=== PATIENT | male | born 1960 | race Caucasian/White ===

== ENCOUNTER 2018-05-08 12:48 | Emergency (ER) | payer BC ==
[~2018-05-08] VITALS: Ht 182.9 cm; Wt 83.9 kg
[2018-05-08] MEDS ORDERED: IV NORMAL SALINE 1,000ML 1,000 ML IV SCH (13:30)
[2018-05-08] MEDS ORDERED: ONDANSETRON PF 4 MG/2 ML VIAL. IV ONE (13:30)
[2018-05-08] MEDS ORDERED: KETOROLAC 30 MG/ML VIAL. IV ONE (13:30)
[2018-05-08 13:40] LABS: BASO % 0 % (0-3); EOS % 0 % (0-3); HEMATOCRIT 51.3 % (39.0-53.0); HEMOGLOBIN 17.5 g/dL (13.0-17.5); LYMPH # 0.8 x10^3/uL (1.0-4.8); LYMPH % 6 % (24-48); MEAN CORPUSCULAR HEMOGLOBIN 31 pg (25-35); MEAN CORPUSCULAR HGB CONC 34 g/dL (31-37); MEAN CORPUSCULAR VOLUME 91 fL (79-100); MONO # 0.7 x10^3/uL (0.0-1.1); MONO % 5 % (0-9); NEUT # 11.9 x10^3uL (1.8-7.7); NEUT % 89 % (31-73); PLATELET COUNT 213 x10^3/uL (140-400); RED BLOOD COUNT 5.63 x10^6/uL (4.30-5.70); RED CELL DISTRIBUTION WIDTH 13.3 % (11.5-14.5); WHITE BLOOD COUNT 13.4 x10^3/uL (4.0-11.0)
[2018-05-08 13:54] LABS: ALBUMIN 3.7 g/dL (3.4-5.0); CALCIUM 9.6 mg/dL (8.5-10.1); POTASSIUM 3.4 mmol/L (3.5-5.1); TOTAL BILIRUBIN 1.3 mg/dL (0.2-1.0); TOTAL PROTEIN 7.4 g/dL (6.4-8.2)
--- NOTE | 2018-05-08 14:08 | RAD ---
Examination: CT of the abdomen pelvis without contrast HISTORY: History of right lower quadrant pain radiating to the left COMPARISON: None available TECHNIQUE: Axial CT images that and pelvis are performed without contrast. Coronal and sagittal reformats are performed Exposure: One or more of the following individualized dose reduction techniques were utilized for this examination: 1. Automated exposure control 2. Adjustment of the mA and/or kV according to patient size 3. Use of iterative reconstruction technique FINDINGS: The bibasilar lungs are clear. No evidence of free air identified in the abdomen. There is diffuse decreased attenuation noted in the liver likely hepatic steatosis. The visualized liver, spleen, adrenals grossly appears unremarkable. The stomach is distended with fluid. The visualized pancreas grossly appears unremarkable. Multiple fluid distended/dilated small bowel loops identified in the abdomen throughout. The appendix is enlarged measuring up to 5.8 cm in length and measures 2 cm in thickness with severe inflammatory fat stranding identified about the appendix. Multiple appendicoliths identified within the appendix. Feces and gas noted in the colon. Punctate 1 mm intrarenal collecting system calculus identified in the right kidney. No evidence of hydronephrosis. Mild aortic atherosclerosis. Mild anterolisthesis of L4 on L5 with the bilateral L4 spondylolysis. IMPRESSION: 1. Findings consistent with severe acute appendicitis. Severe inflammatory fat stranding identified about the appendix. The appendix is enlarged and measures up to 2 cm in transverse dimension. 2. Multiple fluid distended and dilated small bowel loops probably ileus secondary to inflammation about the appendix. However small bowel obstruction is not completely excluded. 3. Hepatic steatosis. 4. 1 mm intrarenal collecting system calculus right kidney. in ER was informed at time of dictation. Electronically signed by: Asim Phillips MD (05/08/2018 2:04 PM) [place] [id number]
--- NOTE | 2018-05-08 14:20 | PHYS DOC ---
Past History Past Medical History: Hypertension Adult General Chief Complaint Chief Complaint: ABDOMINAL PAIN HPI HPI Patient is a 58 year old male who presents with complaining of abdominal pain. Patient complaining of gradual onset of lower abdominal pain that started 3 days ago as a constant and aching pain with episodes of sharp pain as stated with anorexia. Patient said the pain getting force with movement and denies urinary symptom, nausea and vomiting, fever and chills, diarrhea. Patient states he had a bowel movement 4 days ago and usually does not have constipation. Patient rated his pain 7/10 and states his pain getting worse today and complaining of subjective fever. Patient states he had history of kidney stone 1 with the same symptoms and thinks he has kidney stone again. Review of Systems Review of Systems Constitutional: Reports fever] Eyes: Denies change in visual acuity, redness, or eye pain [] HENT: Denies nasal congestion or sore throat [] Respiratory: Denies cough or shortness of breath [] Cardiovascular: No additional information not addressed in HPI [] GI: Reports abdominal pain, anorexia and constipation, denies nausea, vomiting, bloody stools or diarrhea [] : Denies dysuria or hematuria [] Musculoskeletal: Denies back pain or joint pain [] Integument: Denies rash or skin lesions [] Neurologic: Denies headache, focal weakness or sensory changes [] Endocrine: Denies polyuria or polydipsia [] All other systems were reviewed and found to be within normal limits, except as documented in this note. Current Medications Current Medications Current Medications Medications (Trade) Dose Ordered Sig/Julee Start Time Stop Time Status Last Admin Dose Admin Ketorolac Tromethamine (Toradol 30mg Vial) 30 mg 1X ONCE 05/08/18 13:30 05/08/18 13:31 DC 05/08/18 13:27 30 MG Ondansetron HCl (Zofran) 4 mg 1X ONCE 05/08/18 13:30 05/08/18 13:31 DC 05/08/18 13:27 4 MG Sodium Chloride 1,000 ml @ 1,000 mls/hr Q1H 05/08/18 13:30 05/08/18 14:29 05/08/18 13:27 1,000 MLS/HR Allergies Allergies Allergies Coded Allergies Type Severity Reaction Last Updated Verified No Known Drug Allergies 05/08/18 No Physical Exam Physical Exam Constitutional: Well developed, well nourished, mild distress, non-toxic appearance. [] HENT: Normocephalic, atraumatic, bilateral external ears normal, oropharynx moist, no oral exudates, nose normal. [] Eyes: PERRLA, EOMI, conjunctiva normal, no discharge. [] Neck: Normal range of motion, no tenderness, supple, no stridor. [] Cardiovascular: Tachycardia, no murmur [] Lungs & Thorax: Bilateral breath sounds clear to auscultation [] Abdomen: Right lower quadrant tenderness and rebound tenderness, positive Rovsing and psoas sign, Bowel sounds decreased, no masses, no pulsatile masses. [] Skin: Warm, dry, no erythema, no rash. [] Back: No tenderness, no CVA tenderness. [] Extremities: No tenderness, no cyanosis, no clubbing, ROM intact, no edema. [] Neurologic: Alert and oriented X 3, normal motor function, normal sensory function, no focal deficits noted. [] Psychologic: Affect normal, judgement normal, mood normal. [] Current Patient Data Lab Results Laboratory Tests Test 05/08/18 13:23 White Blood Count 13.4 x10^3/uL (4.0-11.0) H Red Blood Count 5.63 x10^6/uL (4.30-5.70) Hemoglobin 17.5 g/dL (13.0-17.5) Hematocrit 51.3 % (39.0-53.0) Mean Corpuscular Volume 91 fL (79-100) Mean Corpuscular Hemoglobin 31 pg (25-35) Mean Corpuscular Hemoglobin Concent 34 g/dL (31-37) Red Cell Distribution Width 13.3 % (11.5-14.5) Platelet Count 213 x10^3/uL (140-400) Neutrophils (%) (Auto) 89 % (31-73) H Lymphocytes (%) (Auto) 6 % (24-48) L Monocytes (%) (Auto) 5 % (0-9) Eosinophils (%) (Auto) 0 % (0-3) Basophils (%) (Auto) 0 % (0-3) Neutrophils # (Auto) 11.9 x10^3uL (1.8-7.7) H Lymphocytes # (Auto) 0.8 x10^3/uL (1.0-4.8) L Monocytes # (Auto) 0.7 x10^3/uL (0.0-1.1) Eosinophils # (Auto) 0.0 x10^3/uL (0.0-0.7) Basophils # (Auto) 0.0 x10^3/uL (0.0-0.2) Sodium Level 130 mmol/L (136-145) L Potassium Level 3.4 mmol/L (3.5-5.1) L Chloride Level 94 mmol/L (98-107) L Carbon Dioxide Level 22 mmol/L (21-32) Anion Gap 14 (6-14) Blood Urea Nitrogen 15 mg/dL (8-26) Creatinine 1.0 mg/dL (0.7-1.3) Estimated GFR (Cockcroft-Gault) 77.0 BUN/Creatinine Ratio 15 (6-20) Glucose Level 133 mg/dL (70-99) H Calcium Level 9.6 mg/dL (8.5-10.1) Total Bilirubin 1.3 mg/dL (0.2-1.0) H Aspartate Amino Transferase (AST) 10 U/L (15-37) L Alanine Aminotransferase (ALT) 17 U/L (16-63) Alkaline Phosphatase 64 U/L (46-116) Total Protein 7.4 g/dL (6.4-8.2) Albumin 3.7 g/dL (3.4-5.0) Albumin/Globulin Ratio 1.0 (1.0-1.7) Lipase 97 U/L (73-393) EKG EKG [] Radiology/Procedures Radiology/Procedures [address] [address] IMAGING REPORT Signed PATIENT: HARIKA SMITH ACCOUNT: [id number] : 1960 LOCATION: ER AGE: 58 SEX: M EXAM STATUS: REG ER ORD. PHYSICIAN: JANIE FLORES MD REASON: RLQ pain x 3 days , H/o kidney stone, RLQ tenderness and rebond t PROCEDURE: CT ABDOMEN PELVIS WO CONTRAST Examination: CT of the abdomen pelvis without contrast HISTORY: History of right lower quadrant pain radiating to the left COMPARISON: None available TECHNIQUE: Axial CT images that and pelvis are performed without contrast. Coronal and sagittal reformats are performed Exposure: One or more of the following individualized dose reduction techniques were utilized for this examination: 1. Automated exposure control 2. Adjustment of the mA and/or kV according to patient size 3. Use of iterative reconstruction technique FINDINGS: The bibasilar lungs are clear. No evidence of free air identified in the abdomen. There is diffuse decreased attenuation noted in the liver likely hepatic steatosis. The visualized liver, spleen, adrenals grossly appears unremarkable. The stomach is distended with fluid. The visualized pancreas grossly appears unremarkable. Multiple fluid distended/dilated small bowel loops identified in the abdomen throughout. The appendix is enlarged measuring up to 5.8 cm in length and measures 2 cm in thickness with severe inflammatory fat stranding identified about the appendix. Multiple appendicoliths identified within the appendix. Feces and gas noted in the colon. Punctate 1 mm intrarenal collecting system calculus identified in the right kidney. No evidence of hydronephrosis. Mild aortic atherosclerosis. Mild anterolisthesis of L4 on L5 with the bilateral L4 spondylolysis. IMPRESSION: 1. Findings consistent with severe acute appendicitis. Severe inflammatory fat stranding identified about the appendix. The appendix is enlarged and measures up to 2 cm in transverse dimension. 2. Multiple fluid distended and dilated small bowel loops probably ileus secondary to inflammation about the appendix. However small bowel obstruction is not completely excluded. 3. Hepatic steatosis. 4. 1 mm intrarenal collecting system calculus right kidney. in ER was informed at time of dictation. Electronically signed by: Asim Phillips MD (05/08/2018 2:04 PM) [facility] DICTATED AND SIGNED BY: ASIM PHILLIPS MD DATE: 05/08/18 2708 CC: RANI GIVENS MD; JANIE FLORES MD ~ Course & Med Decision Making Course & Med Decision Making Pertinent Labs and Imaging studies reviewed. (See chart for details) Evaluation of patient in ER showed 58-year-old male patient with complaining of right lower quadrant pain for 3 days. Patient had tachycardia and temperature of 99.2 with tenderness and rebound tenderness of right lower quadrant. Patient had severe acute appendicitis in CT of abdomen and pelvis. Dr. Ash accepted admission to [facility] at [address] gonzalez on-call surgeon informed at 1411. Patient treated with IV fluid, Zofran, Toradol in ER and felt better. 1 dose of Zosyn was given. Dragon Disclaimer Dragon Disclaimer This electronic medical record was generated, in whole or in part, using a voice recognition dictation system. Departure Departure: Impression: Primary Impression: Acute appendicitis Disposition: XFER [facility] ([facility] at 1409) Admitting Physician: Toño Ash (accepted transfer to [facility] at 1408) Condition: IMPROVED Referrals: RANI GIVENS MD (PCP) JANIE FLORES MD May 08, 2018 14:20
[2018-05-08] MEDS ORDERED: PIPERACILLIN/TAZOBACTAM 3.375 GM VIAL IV ONE (14:28)
[2018-05-08] MEDS ORDERED: IV NORMAL SALINE 50ML 50 ML ONE (14:29)
[2018-05-08] MEDS ORDERED: PIPERACILLIN/TAZOBACTAM 3.375 GM in IV NORMAL SALINE 50ML 50 ML IV ONE (14:30)
[2018-05-08 15:40] VITALS: BP 112/71
== END 2018-05-08 15:40 | disposition short-term general hospital (02) ==
LOC: ER 12:48
DX: K35.80 Unspecified acute appendicitis (principal); K76.0 Fatty (change of) liver, not elsewhere classified; N20.0 Calculus of kidney; M43.06 Spondylolysis, lumbar region; I70.0 Atherosclerosis of aorta; I10 Essential (primary) hypertension
CPT/HCPCS: 36415; 74176; 80053; 83690; 85025; 96365; 96375; 99285; J1885; J2405; J2543; J7030